=== PATIENT | male | born 1965 | race Caucasian/White ===

== ENCOUNTER 2020-07-26 20:41 | Inpatient (IN) ==
[2020-07-26] MEDS ORDERED: DEXAMETHASONE SOD INJ 4 MG/ML VIAL IV STA (21:00)
[2020-07-26] MEDS ORDERED: ALBUTEROL HFA 8 GM INHALER INH ONE (21:00)
[2020-07-26] MEDS ORDERED: ACETAMINOPHEN 1,000 MG/100 ML VIAL IV STA (21:01)
[2020-07-26 21:27] LABS: Basophils # (auto) 0.02 K/uL (0-0.2); Basophils % (auto) 0.3 %; Eosinophils # (auto) 0.22 K/uL (0-0.5); Eosinophils % (auto) 2.9 %; Hematocrit (blood only) 38.5 % (42-52); Hemoglobin 13.1 g/dL (14.0-18.0); Immature Granulocytes # (auto) 0.03 K/uL (0.00-0.02); Immature Granulocytes % (auto) 0.4 %; Lymphocytes % (auto) 30.5 %; Mean Corpuscular Hemoglobin 26.6 pg (25-34); Mean Corpuscular Volume 78.3 fL (80-100); Mean Platelet Volume 9.4 fL (7.4-10.4); Monocytes # (auto) 0.58 K/uL (0.11-0.59); Monocytes % (auto) 7.7 %; Neutrophils # (auto) 4.38 K/uL (1.4-6.5); Neutrophils % (auto) 58.2 %; Platelet Count 296 K/uL (130-400); RDW Coefficient of Variation 14.9 % (11.5-14.5); RDW Standard Deviation 42.6 fL (36.4-46.3); Red Blood Count 4.92 M/uL (4.7-6.1); White Blood Count 7.53 K/uL (4.8-10.8)
--- NOTE | 2020-07-26 21:28 | Emergency Department Note ---
History of Present Illness General Chief complaint: Shortness of Breath/Dyspnea Stated complaint: SOB Time Seen by Provider: 07/26/20 20:52 Source: patient, RN notes reviewed and old records reviewed Mode of arrival: ambulatory Limitations: no limitations History of Present Illness Provider complaint: Shortness of breath Onset (ago): day(s) 3 Location: chest Radiation: back Severity: moderate Pain Consistency: + intermittent Maximum Pain Intensity: 5 Current Pain Intensity: 5 Quality: + aching Relieved By: + immobilization and + rest Exacerbated By: + movement (breathing ) Associated symptoms: + loss of appetite, + nausea/vomiting and + shortness of breath Treatments prior to arrival: none This is a 55-year-old male who presents emergency department complaining of shortness of breath that is made worse with exertion. The patient has been checking his pulse ox at home and noted he has been dropping into the 80s for the past 2 days with movement. The patient reports rest makes the shortness of breath better however exertion makes it worse. He has not taken anything for this prior to arrival. 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 Home Medications Medication Instructions Recorded Confirmed Type amlodipine 5 mg PO QPM 08/19/18 07/26/20 History omeprazole 20 mg PO QPM 08/19/18 07/26/20 History sertraline 100 mg PO QPM 08/19/18 07/26/20 History warfarin 7.5 - 10 mg PO QPM 08/19/18 07/26/20 History loratadine [Allergy Relief 10 mg PO PM 07/26/20 07/26/20 History (loratadine)] Allergies Allergy/AdvReac Type Severity Reaction Status Date / Time No Known Allergies Allergy Verified 07/26/20 21:25 Past Med/Surg History Medical History (Updated 07/26/20 @ 23:25 by Pablo Sinha MD) Shortness of breath Family History Other Clotting disorder Social History Smoking Status: Former smoker Feels Safe at Home: Yes Review of Systems A total of 10 systems reviewed and were otherwise negative Physical Exam Vital Signs Vital Signs - 24 hr 07/26/20 20:42 07/26/20 20:45 07/26/20 21:05 Temperature 36.3 C L Temperature Source Temporal Artery Scan Pulse Rate 90 90 Pulse Rate from SpO2 Sensor 89 Respiratory Rate 28 H 20 Respiratory Effort / Characteristics Spontaneous Labored Spontaneous Labored Respiratory Depth Normal Respiratory Pattern Regular Blood Pressure 153/80 H 150/72 H Blood Pressure Mean 104 85 Pulse Oximetry 97 95 97 Oxygen Delivery Method Room Air Room Air Room Air Sepsis Recent Fever Within 48 Hours No Sepsis New/Unexplained Change in Mental Status No Sepsis Action Taken by Nursing No Action Required 07/26/20 21:30 Temperature Temperature Source Pulse Rate 85 Pulse Rate from SpO2 Sensor 84 Respiratory Rate 19 Respiratory Effort / Characteristics Respiratory Depth Respiratory Pattern Blood Pressure 143/73 H Blood Pressure Mean 95 Pulse Oximetry 94 Oxygen Delivery Method Room Air Other Sepsis Recent Fever Within 48 Hours Sepsis New/Unexplained Change in Mental Status Sepsis Action Taken by Nursing VITAL SIGNS - Vital signs and nursing notes were reviewed. GENERAL - 55-year-old male appearing stated age who is in no acute distress. Communicates well with provider and answers questions appropriately. SKIN - Without rashes. HEAD - NC/AT. EYES - PERRL with EOMI bilaterally. Sclera anicteric. Palpebral conjunctiva pink and moist with no injection noted. EARS - No deformities of external structures noted on gross examination bilaterally. No pain elicited with palpation of the tragus bilaterally. External auditory canals without discharge or otorrhea. Tympanic membranes pearly rose without retraction or bulging. No fluid or purulent material visualized behind the TM. Handle of malleus, umbo, cone of light, pars tensa/flaccid all easily visualized. NOSE - Midline and without cyanosis. No epistaxis or purulent drainage noted. Septum midline without deviation or septal hematoma noted. MOUTH/OROPHARYNX - Without perioral cyanosis. Buccal mucosa pink and moist and without leukoplakia. Tongue midline with equal elevation of palate bilaterally. No tonsillar hypertrophy, erythema, or exudates noted. dentition noted. NECK - Neck with FROM. Supple to palpation. lymphadenopathy noted. No nuchal rigidity. LUNGS - Chest wall symmetric without accessory muscle use, intercostals retractions, or central cyanosis. Normal vesicular breath sounds CTA B/L. No wheezes, rales, or rhonchi appreciated. CARDIAC - RRR with S1/S2. No murmur, rubs, or gallops appreciated. ABDOMEN - Abdominal contour without pulsations or visible masses. BS normoactive all four quadrants. No tenderness, palpable masses, hepa tosplenomegaly, or ascites noted. EXTREMITIES - No clubbing or peripheral cyanosis. No pretibial edema present. +3/5 radial, posterior tibial, and dorsalis pedis pulses palpated throughout. +5/5 strength noted in UE/LE bilaterally. NEUROLOGIC - Cranial nerves II through XII grossly intact. Sensory intact to light touch throughout. Patellar reflexes +2/4. PSYCH - A&Ox3 and cooperates fully with examiner. Pt is very pleasant and interacts well with examiner. Course Administered Medications Discontinued Medications Albuterol (Albuterol Hfa 8 Gm Inhaler) 2 puffs INH NOW ONE Stop: 07/26/20 21:01 Last Admin: 07/26/20 21:15 Dose: 2 puffs Documented by: [id number] Dexamethasone (Dexamethasone Sod Inj 4 Mg/Ml Vial) 6 mg IV NOW STA Stop: 07/26/20 21:01 Last Admin: 07/26/20 21:16 Dose: 6 mg Documented by: [id number] Acetaminophen (Ofirmev) 1,000 mg in 100 mls @ 400 mls/hr IV NOW STA Stop: 07/26/20 21:15 Last Infusion: 07/26/20 22:00 Dose: 0 mls/hr Documented by: [id number] Admin: 07/26/20 21:15 Dose: 400 mls/hr Documented by: [id number] Ioversol (Optiray 320 125ml) 125 ml IV ONCE ONE Stop: 07/26/20 22:49 Last Admin: 07/26/20 22:49 Dose: 112 ml Documented by: [id number] Medical Decision Making Differential Diagnosis Reactive airway disease, pneumonia, pneumothorax, COPD, CHF, infections, cardiac ischemia, pulmonary embolism, musculoskeletal, gastrointestinal, as well as other pathologies. Medical Records Attestation: I reviewed the patient's medical records. Home Medications Current Medication List: was personally reviewed by me Laboratory Data Attestation: I reviewed the patient's lab results. Result diagrams: 07/26/20 21:14 07/26/20 21:14 Lab Results 07/26/20 07/26/20 07/26/20 Range/Units 21:14 21:14 21:14 WBC 7.53 (4.8-10.8) K/uL RBC 4.92 (4.7-6.1) M/uL Hgb 13.1 L (14.0-18.0) g/dL Hct 38.5 L (42-52) % MCV 78.3 L (80-100) fL MCH 26.6 (25-34) pg MCHC 34.0 (32-36) g/dL RDW Std Deviation 42.6 (36.4-46.3) fL RDW Coeff of Wilner 14.9 H (11.5-14.5) % Plt Count 296 (130-400) K/uL MPV 9.4 (7.4-10.4) fL Immature Gran % (Auto) 0.4 % Neut % (Auto) 58.2 % Lymph % (Auto) 30.5 % [place] % (Auto) 7.7 % Eos % (Auto) 2.9 % Baso % (Auto) 0.3 % Neut # (Auto) 4.38 (1.4-6.5) K/uL Lymph # (Auto) 2.30 (1.2-3.4) K/uL [place] # (Auto) 0.58 (0.11-0.59) K/uL Eos # (Auto) 0.22 (0-0.5) K/uL Baso # (Auto) 0.02 (0-0.2) K/uL Immature Gran # (Auto) 0.03 H (0.00-0.02) K/uL ESR (0-14) mm/hr PT 24.1 H (9.0-12.0) Seconds INR 2.4 H (0.9-1.1) APTT 42.7 H (21.0-31.0) Seconds PTT Ratio 1.5 D-Dimer 500 (0-500) ug/L FEU Sodium 141 (136-145) mmol/L Potassium 3.5 (3.5-5.1) mmol/L Chloride 108 H (98-107) mmol/L Carbon Dioxide 26 (21-32) mmol/L Anion Gap 7.0 (3-11) BUN 20 H (7-18) mg/dl Creatinine 1.16 (0.6-1.4) mg/dl Est Cr Clr Drug Dosing 91.2 ml/min Est GFR ( Amer) 81.1 Est GFR (Non-Af Amer) 70.0 BUN/Creatinine Ratio 17.0 (10-20) Glucose 94 (70-99) mg/dl Calcium 8.3 L (8.5-10.1) mg/dl Ferritin 154.9 (8-388) ng/ml Total Bilirubin 0.5 (0.2-1) mg/dl AST 17 (15-37) U/L ALT 25 (12-78) U/L Alkaline Phosphatase 132 H (45-117) U/L Lactate Dehydrogenase (87-241) U/L Total Creatine Kinase 227 (39-308) U/L CK-MB (CK-2) 2.2 (0.5-3.6) ng/ml CK/CKMB % Calc 1.0 (0-3.0) Troponin I 0.018 (0-0.045) ng/ml C-Reactive Protein 1.55 H (0-0.29) mg/dl Total Protein 6.8 (6.4-8.2) gm/dl Albumin 3.2 L (3.4-5.0) gm/dl Globulin 3.6 (2.5-4.0) gm/dl Albumin/Globulin Ratio 0.9 (0.9-2) Lipase 112 (73-393) U/L COVID-19 Eval Order SARS-CoV-2, RNA, NAAT (NEGATIVE) 07/26/20 07/26/20 07/26/20 Range/Units 21:14 21:14 21:14 WBC (4.8-10.8) K/uL RBC (4.7-6.1) M/uL Hgb (14.0-18.0) g/dL Hct (42-52) % MCV (80-100) fL MCH (25-34) pg MCHC (32-36) g/dL RDW Std Deviation (36.4-46.3) fL RDW Coeff of Wilner (11.5-14.5) % Plt Count (130-400) K/uL MPV (7.4-10.4) fL Immature Gran % (Auto) % Neut % (Auto) % Lymph % (Auto) % [place] % (Auto) % Eos % (Auto) % Baso % (Auto) % Neut # (Auto) (1.4-6.5) K/uL Lymph # (Auto) (1.2-3.4) K/uL [place] # (Auto) (0.11-0.59) K/uL Eos # (Auto) (0-0.5) K/uL Baso # (Auto) (0-0.2) K/uL Immature Gran # (Auto) (0.00-0.02) K/uL ESR 7 (0-14) mm/hr PT (9.0-12.0) Seconds INR (0.9-1.1) APTT (21.0-31.0) Seconds PTT Ratio D-Dimer (0-500) ug/L FEU Sodium (136-145) mmol/L Potassium (3.5-5.1) mmol/L Chloride (98-107) mmol/L Carbon Dioxide (21-32) mmol/L Anion Gap (3-11) BUN (7-18) mg/dl Creatinine (0.6-1.4) mg/dl Est Cr Clr Drug Dosing ml/min Est GFR ( Amer) Est GFR (Non-Af Amer) BUN/Creatinine Ratio (10-20) Glucose (70-99) mg/dl Calcium (8.5-10.1) mg/dl Ferritin (8-388) ng/ml Total Bilirubin (0.2-1) mg/dl AST (15-37) U/L ALT (12-78) U/L Alkaline Phosphatase (45-117) U/L Lactate Dehydrogenase (87-241) U/L Total Creatine Kinase (39-308) U/L CK-MB (CK-2) (0.5-3.6) ng/ml CK/CKMB % Calc (0-3.0) Troponin I (0-0.045) ng/ml C-Reactive Protein (0-0.29) mg/dl Total Protein (6.4-8.2) gm/dl Albumin (3.4-5.0) gm/dl Globulin (2.5-4.0) gm/dl Albumin/Globulin Ratio (0.9-2) Lipase (73-393) U/L COVID-19 [email or web address] SARS-[facility]-2, RNA, NAAT NEGATIVE (NEGATIVE) 07/26/20 Range/Units 21:14 WBC (4.8-10.8) K/uL RBC (4.7-6.1) M/uL Hgb (14.0-18.0) g/dL Hct (42-52) % MCV (80-100) fL MCH (25-34) pg MCHC (32-36) g/dL RDW Std Deviation (36.4-46.3) fL RDW Coeff of Wilner (11.5-14.5) % Plt Count (130-400) K/uL MPV (7.4-10.4) fL Immature Gran % (Auto) % Neut % (Auto) % Lymph % (Auto) % [place] % (Auto) % Eos % (Auto) % Baso % (Auto) % Neut # (Auto) (1.4-6.5) K/uL Lymph # (Auto) (1.2-3.4) K/uL [place] # (Auto) (0.11-0.59) K/uL Eos # (Auto) (0-0.5) K/uL Baso # (Auto) (0-0.2) K/uL Immature Gran # (Auto) (0.00-0.02) K/uL ESR (0-14) mm/hr PT (9.0-12.0) Seconds INR (0.9-1.1) APTT (21.0-31.0) Seconds PTT Ratio D-Dimer (0-500) ug/L FEU Sodium (136-145) mmol/L Potassium (3.5-5.1) mmol/L Chloride (98-107) mmol/L Carbon Dioxide (21-32) mmol/L Anion Gap (3-11) BUN (7-18) mg/dl Creatinine (0.6-1.4) mg/dl Est Cr Clr Drug Dosing ml/min Est GFR ( Amer) Est GFR (Non-Af Amer) BUN/Creatinine Ratio (10-20) Glucose (70-99) mg/dl Calcium (8.5-10.1) mg/dl Ferritin (8-388) ng/ml Total Bilirubin (0.2-1) mg/dl AST (15-37) U/L ALT (12-78) U/L Alkaline Phosphatase (45-117) U/L Lactate Dehydrogenase 249 H (87-241) U/L Total Creatine Kinase (39-308) U/L CK-MB (CK-2) (0.5-3.6) ng/ml CK/CKMB % Calc (0-3.0) Troponin I (0-0.045) ng/ml C-Reactive Protein (0-0.29) mg/dl Total Protein (6.4-8.2) gm/dl Albumin (3.4-5.0) gm/dl Globulin (2.5-4.0) gm/dl Albumin/Globulin Ratio (0.9-2) Lipase (73-393) U/L COVID-19 Eval Order SARS-CoV-2, RNA, NAAT (NEGATIVE) Imaging Data Attestation: I personally reviewed and interpreted this imaging study as follows: My Impression: 1 view of the chest was interpreted by me shows multiple areas of pneumonia. ECG Data Attestation: I personally reviewed and interpreted this ECG as follows: Indication: + SOB/dyspnea Rate (beats per minute): 89 Rhythm: + normal sinus ECG Intervals/blocks: + Normal QT-c (479) ECG [place]: + Normal ECG ST segments: no ST depression and no ST elevation Comparison ECG Date: from (11/08/2008) Change: no significant change MDM Narrative Patient was seen and evaluated as above in room A9. Review was performed of nursing notes and vital signs. I did review pertinent previous visits and patient history. After obtaining a thorough history and physical examination the above work up was performed. This is a 55-year-old male who presents emergency department complaining of shortness of breath that has been ongoing for the past 2 days. The patient is on Coumadin. The patient had extreme shortness of breath here in the emergency department and was placed on oxygen for sats in the 80s. He was started on Decadron here. His kramer test is negative. His INR is 2.5. He has multifocal pneumonia on his chest x-ray. He was sent for CAT scan of the chest. Because the patient is requiring oxygen I did discuss the case with the hospitalist service who did agree to meet the patient. The patient was started on broad- spectrum antibiotics. An order was placed for continuous cardiac monitoring. The monitor shows a rate of 90 with Normal SInus rhythm. The patient was evaluated during a period of high volume and high acuity while the hospital was at overcapacity during the global COVID-19 pandemic, and that diagnosis was suspected/considered upon their initial presentation. Their evaluation, treatment and testing was consistent with current guidelines for patients who present with complaints or symptoms that may be related to COVID- 19. Impression & Plan Hypoxia, Pneumonia Discharge Plan Visit Data Chief Complaint: Shortness of Breath/Dyspnea Stated Complaint: SOB ED Provider: Pablo Sinha Discharge Problem: Hypoxia, Pneumonia Forms Stand Alone Forms: [facility] [place] [employer] Prescriptions Prescriptions: No Action sertraline 100 mg tablet 100 mg PO QPM RF: 0 amlodipine 5 mg tablet 5 mg PO QPM RF: 0 warfarin 5 mg tablet 7.5 - 10 mg PO QPM RF: 0 omeprazole 20 mg Tablet,Delayed Release (Dr/Ec) 20 mg PO QPM RF: 0 loratadine [Allergy Relief (loratadine)] 10 mg Tablet 10 mg PO PM RF: 0 Discharge Problem: Pneumonia Qualifiers: Pneumonia type: due to unspecified organism Laterality: unspecified laterality Lung location: unspecified part of lung Qualified Code(s): J18.9 - Pneumonia, unspecified organism
[2020-07-26 21:39] LABS: D Dimer 500 ug/L FEU (0-500); INR 2.4 (0.9-1.1); Partial Thromboplastin Ratio 1.5; Partial Thromboplastin Time 42.7 Seconds (21.0-31.0); Prothrombin Time 24.1 Seconds (9.0-12.0)
[2020-07-26 21:48] LABS: Albumin Level 3.2 gm/dl (3.4-5.0); Calcium 8.3 mg/dl (8.5-10.1); Creatinine Clr Calc Pharmacy 91.2 ml/min; Est GFR (African American) 81.1; Potassium 3.5 mmol/L (3.5-5.1)
[2020-07-26 21:53] LABS: Albumin Globulin Ratio 0.9 (0.9-2); Bilirubin,Total 0.5 mg/dl (0.2-1); Creatine Kinase MB 2.2 ng/ml (0.5-3.6); Globulin 3.6 gm/dl (2.5-4.0); Total Protein 6.8 gm/dl (6.4-8.2); Troponin I 0.018 ng/ml (0-0.045)
[2020-07-26 22:40] LABS: C Reactive Protein 1.55 mg/dl (0-0.29)
[2020-07-26 22:41] LABS: Ferritin 154.9 ng/ml (8-388)
[2020-07-26] MEDS ORDERED: OPTIRAY 320 125ml IV ONE (22:48)
[2020-07-26] MEDS ORDERED: PIPERACILL/TAZOBAC CONSULT ACTIVE PRN (23:14)
[2020-07-26] MEDS ORDERED: levoFLOXacin/D5W 750 MG/150 ML BAG IV STA (23:14)
[2020-07-26] MEDS ORDERED: VANCOMYCIN HCL 1,000 MG/270 ML BAG IV STA (23:14)
[2020-07-26] MEDS ORDERED: VANCOMYCIN CONSULT ACTIVE PRN (23:14)
[2020-07-26] MEDS ORDERED: PIPERACILLIN/TAZOBACTAM 4.5 GM/120 ML BAG IV ONE (23:14)
--- NOTE | 2020-07-26 23:30 | History & Physical Report ---
Date of Service July 26, 2020 Assessment & Plan (1) Shortness of breath: 55yo C male with two days of ORTEGA. Patient mildly hypoxic to 88% on room air in the ER. He has dry cough otherwise no specific complaints. 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 His Covid-19 rapid antigen test performed in the ER was NEGATIVE. CT of the chest with small OSMAR infiltrate with possible cavitation vs small pneumothorax. Elevated CRP and LDH which are nonspecific. -Admit to medical -Check procalcitonin and BNP -Will order more sensitive Covid testing as patient's occupation places him at fairly high risk for exposure. Biofire panel ordered. -Blood cultures x 2 sets -Sputum culture -Ceftriaxone 1gm IV daily for presumed CAP -Azithromycin 500mg IV daily for presumed CAP -Will order 2D echo as patient with 3/6 HANDY at RSB Present on Admission?: Yes (2) Clotting disorder: Patient with strong family and personal history of clotting. ?Prothrombin gene mutation as mentioned in records. He is on lifelong anticoagulation with Coumadin. Therapeutic INR of 2.4 today -Continue Coumadin -Monitor INR daily Present on Admission?: Yes (3) Hypertension: Blood pressure well controlled -Continue Amlodipine 5mg po daily Present on Admission?: Yes (4) GERD (gastroesophageal reflux disease): Chronic. Stable -Continue Omeprazole Present on Admission?: Yes (5) Anemia: Patient with microcytic anemia. Hgb=13.1, Hct=38.5, MCV=78.3. This is decreased from prior values of 14.5 and 43.4 with normal MCV on 08/19/18. Ashleigh melgar denies melena/hematochezia/hematuria or easy bleeding/bruising. He had a colonoscopy performed appx 6 years ago. Ferritin level is within normal range, however, can be misleading as it is an acute phase reactant. -Check iron level with AM lab -FOBT x 1 -Recommend continued outpatient monitoring Present on Admission?: Yes (6) WESELY on CPAP: Chronic. Patient reports he is compliant with CPAP -Continue CPAP qHS F/E/N- Heplock. Electrolytes WNL, check Mg and PO4 x 1 and replete as needed, heart healthy diet as tolerated Ppx - On Coumadin for history of PEs with clotting disorder. Continue home Omeprazole Code - Full per discussion with patient Dispo - Admit to medical History of Present Illness Chief Complaint: SOB Primary Care Provider: Javier Cordero Renny Perez is a 55yo C male with prior history of PE, clotting disorder (prothrombin gene mutation) on Coumadin anticoagulation with therapeutic INR of 2.4. Patient works as a local EMT. He presents with two days of dyspnea on exertion. He reports becoming short of breath with ambulating even short distances. He has an occasional dry cough. Denies fevers/chills/sweats/sputum/chest pain/palpitations/orthopnea/weight gain or edema. Patient has been monitoring his oxygen saturations at home and they have occasionally dipped into the 80's. Upon arrival to the ER he was found to be afebrile, HD stable, NAD. Adequate oxygenation at 94% on room air. He did become mildly hypoxic in the ER - witnessed to be 88-89% on room air with proper waveform. He was placed on supplemental oxygen by NC 2L with improvement in oxygenation. ER Course: Dexamethasone 6mg IV, Tylenol, 1gm, Albuterol 2 puffs, Levaquin 750mg, Zosyn 4.5gm, Vancomycin 1gm Allergies Allergy/AdvReac Type Severity Reaction Status Date / Time No Known Allergies Allergy Verified 07/26/20 21:25 Home Medications Medication Instructions Recorded Confirmed Type amlodipine 5 mg PO QPM 08/19/18 07/26/20 History omeprazole 20 mg PO QPM 08/19/18 07/26/20 History sertraline 100 mg PO QPM 08/19/18 07/26/20 History warfarin 7.5 - 10 mg PO QPM 08/19/18 07/26/20 History loratadine [Allergy Relief 10 mg PO PM 07/26/20 07/26/20 History (loratadine)] Past Med/Surg History Medical History (Updated 07/26/20 @ 23:55 by Monique Browning DO) Clotting disorder GERD (gastroesophageal reflux disease) Hypertension WESLEY on CPAP Surgical History (Updated 07/26/20 @ 23:26 by Monique Browning DO) No significant past surgical history Family History Other Clotting disorder Social History (Updated 07/26/20 @ 23:26 by Monique Browning DO) Smoking Status: Former smoker Do You Dip or Chew Tobacco: Yes; Hx Alcohol Use: No Hx Substance Use: No Feels Safe at Home: Yes Review of Systems Review of Systems: All systems reviewed & are unremarkable except as noted in HPI & below Physical Exam Physical Exam: General: patient resting comfortably, NAD, non-toxic in appearance, AA&O x 4, facemask in place Skin: warm, dry, intact, no rashes or lesions HEENT: NC/AT, PERRL, EOMI, anicteric sclera, conjunctiva without injection, external ear normal to inspection and nontender, nares patent, moist mucus membranes, dentition intact, no oropharyngeal lesions, neck supple, trachea midline, no LAD, no thyromegaly, no JVD Heart: +S1/S2, regular, 3/6 HANDY at right sternal border Lungs: equal air entry bilaterally, no rales or wheezes, +crackles in bilateral bases Abd: +BS, soft, NT/ND, no masses/organomegaly/ascites Ext: warm, 2+ pulses in UE/LE bilaterally, no clubbing/cyanosis, trace pitting edema bilaterally Neuro: nonfocal, patient AA&O x 4, speech intact, no facial droop, moving all extremities on command with equal strength 5/5 Results & Data Results & Data ([facility]) Vital Signs (Past 12 Hours) Vital Signs Temp Pulse Resp BP Pulse Ox 07/26/20 21:30 85 19 143/73 H 94 07/26/20 21:05 90 20 150/72 H 97 07/26/20 20:45 36.3 C L 90 28 H 153/80 H 95 07/26/20 20:42 97 Laboratory Results Lab Results 07/26/20 07/26/20 07/26/20 Range/Units 21:14 21:14 21:14 WBC 7.53 (4.8-10.8) K/uL RBC 4.92 (4.7-6.1) M/uL Hgb 13.1 L (14.0-18.0) g/dL Hct 38.5 L (42-52) % MCV 78.3 L (80-100) fL MCH 26.6 (25-34) pg MCHC 34.0 (32-36) g/dL RDW Std Deviation 42.6 (36.4-46.3) fL RDW Coeff of Wilner 14.9 H (11.5-14.5) % Plt Count 296 (130-400) K/uL MPV 9.4 (7.4-10.4) fL Immature Gran % (Auto) 0.4 % Neut % (Auto) 58.2 % Lymph % (Auto) 30.5 % Bond % (Auto) 7.7 % Eos % (Auto) 2.9 % Baso % (Auto) 0.3 % Neut # (Auto) 4.38 (1.4-6.5) K/uL Lymph # (Auto) 2.30 (1.2-3.4) K/uL Bond # (Auto) 0.58 (0.11-0.59) K/uL Eos # (Auto) 0.22 (0-0.5) K/uL Baso # (Auto) 0.02 (0-0.2) K/uL Immature Gran # (Auto) 0.03 H (0.00-0.02) K/uL ESR (0-14) mm/hr PT 24.1 H (9.0-12.0) Seconds INR 2.4 H (0.9-1.1) APTT 42.7 H (21.0-31.0) Seconds PTT Ratio 1.5 D-Dimer 500 (0-500) ug/L FEU Sodium 141 (136-145) mmol/L Potassium 3.5 (3.5-5.1) mmol/L Chloride 108 H (98-107) mmol/L Carbon Dioxide 26 (21-32) mmol/L Anion Gap 7.0 (3-11) BUN 20 H (7-18) mg/dl Creatinine 1.16 (0.6-1.4) mg/dl Est Cr Clr Drug Dosing 91.2 ml/min Est GFR ( Amer) 81.1 Est GFR (Non-Af Amer) 70.0 BUN/Creatinine Ratio 17.0 (10-20) Glucose 94 (70-99) mg/dl Calcium 8.3 L (8.5-10.1) mg/dl Ferritin 154.9 (8-388) ng/ml Total Bilirubin 0.5 (0.2-1) mg/dl AST 17 (15-37) U/L ALT 25 (12-78) U/L Alkaline Phosphatase 132 H (45-117) U/L Lactate Dehydrogenase (87-241) U/L Total Creatine Kinase 227 (39-308) U/L CK-MB (CK-2) 2.2 (0.5-3.6) ng/ml CK/CKMB % Calc 1.0 (0-3.0) Troponin I 0.018 (0-0.045) ng/ml C-Reactive Protein 1.55 H (0-0.29) mg/dl Total Protein 6.8 (6.4-8.2) gm/dl Albumin 3.2 L (3.4-5.0) gm/dl Globulin 3.6 (2.5-4.0) gm/dl Albumin/Globulin Ratio 0.9 (0.9-2) Lipase 112 (73-393) U/L COVID-19 Eval Order SARS-CoV-2, RNA, NAAT (NEGATIVE) 07/26/20 07/26/20 07/26/20 Range/Units 21:14 21:14 21:14 WBC (4.8-10.8) K/uL RBC (4.7-6.1) M/uL Hgb (14.0-18.0) g/dL Hct (42-52) % MCV (80-100) fL MCH (25-34) pg MCHC (32-36) g/dL RDW Std Deviation (36.4-46.3) fL RDW Coeff of Wilner (11.5-14.5) % Plt Count (130-400) K/uL MPV (7.4-10.4) fL Immature Gran % (Auto) % Neut % (Auto) % Lymph % (Auto) % Bond % (Auto) % Eos % (Auto) % Baso % (Auto) % Neut # (Auto) (1.4-6.5) K/uL Lymph # (Auto) (1.2-3.4) K/uL Bond # (Auto) (0.11-0.59) K/uL Eos # (Auto) (0-0.5) K/uL Baso # (Auto) (0-0.2) K/uL Immature Gran # (Auto) (0.00-0.02) K/uL ESR 7 (0-14) mm/hr PT (9.0-12.0) Seconds INR (0.9-1.1) APTT (21.0-31.0) Seconds PTT Ratio D-Dimer (0-500) ug/L FEU Sodium (136-145) mmol/L Potassium (3.5-5.1) mmol/L Chloride (98-107) mmol/L Carbon Dioxide (21-32) mmol/L Anion Gap (3-11) BUN (7-18) mg/dl Creatinine (0.6-1.4) mg/dl Est Cr Clr Drug Dosing ml/min Est GFR ( Amer) Est GFR (Non-Af Amer) BUN/Creatinine Ratio (10-20) Glucose (70-99) mg/dl Calcium (8.5-10.1) mg/dl Ferritin (8-388) ng/ml Total Bilirubin (0.2-1) mg/dl AST (15-37) U/L ALT (12-78) U/L Alkaline Phosphatase (45-117) U/L Lactate Dehydrogenase (87-241) U/L Total Creatine Kinase (39-308) U/L CK-MB (CK-2) (0.5-3.6) ng/ml CK/CKMB % Calc (0-3.0) Troponin I (0-0.045) ng/ml C-Reactive Protein (0-0.29) mg/dl Total Protein (6.4-8.2) gm/dl Albumin (3.4-5.0) gm/dl Globulin (2.5-4.0) gm/dl Albumin/Globulin Ratio (0.9-2) Lipase (73-393) U/L COVID-19 Eval Order Covid19 IDNow at[facility] SARS-CoV-2, RNA, NAAT NEGATIVE (NEGATIVE) 07/26/20 Range/Units 21:14 WBC (4.8-10.8) K/uL RBC (4.7-6.1) M/uL Hgb (14.0-18.0) g/dL Hct (42-52) % MCV (80-100) fL MCH (25-34) pg MCHC (32-36) g/dL RDW Std Deviation (36.4-46.3) fL RDW Coeff of Wilner (11.5-14.5) % Plt Count (130-400) K/uL MPV (7.4-10.4) fL Immature Gran % (Auto) % Neut % (Auto) % Lymph % (Auto) % Bond % (Auto) % Eos % (Auto) % Baso % (Auto) % Neut # (Auto) (1.4-6.5) K/uL Lymph # (Auto) (1.2-3.4) K/uL Bond # (Auto) (0.11-0.59) K/uL Eos # (Auto) (0-0.5) K/uL Baso # (Auto) (0-0.2) K/uL Immature Gran # (Auto) (0.00-0.02) K/uL ESR (0-14) mm/hr PT (9.0-12.0) Seconds INR (0.9-1.1) APTT (21.0-31.0) Seconds PTT Ratio D-Dimer (0-500) ug/L FEU Sodium (136-145) mmol/L Potassium (3.5-5.1) mmol/L Chloride (98-107) mmol/L Carbon Dioxide (21-32) mmol/L Anion Gap (3-11) BUN (7-18) mg/dl Creatinine (0.6-1.4) mg/dl Est Cr Clr Drug Dosing ml/min Est GFR ( Amer) Est GFR (Non-Af Amer) BUN/Creatinine Ratio (10-20) Glucose (70-99) mg/dl Calcium (8.5-10.1) mg/dl Ferritin (8-388) ng/ml Total Bilirubin (0.2-1) mg/dl AST (15-37) U/L ALT (12-78) U/L Alkaline Phosphatase (45-117) U/L Lactate Dehydrogenase 249 H (87-241) U/L Total Creatine Kinase (39-308) U/L CK-MB (CK-2) (0.5-3.6) ng/ml CK/CKMB % Calc (0-3.0) Troponin I (0-0.045) ng/ml C-Reactive Protein (0-0.29) mg/dl Total Protein (6.4-8.2) gm/dl Albumin (3.4-5.0) gm/dl Globulin (2.5-4.0) gm/dl Albumin/Globulin Ratio (0.9-2) Lipase (73-393) U/L COVID-19 Eval Order SARS-CoV-2, RNA, NAAT (NEGATIVE) Diagnostic Findings CTA Chest - Per STAT rad: Small region of consolidation in the inferior aspect of the left upper lobe. Adjacent to this consolidation, there is a small air cavity. This air cavity may reporesent a region of cavitation versus a tiny superimposed pneumothorax. Small right greater than left pleural effusions with adjacent passive atelectasis. No evidence of an acute pulmonary embolism. Mildly enlarged AP window the distal lymph nodes, likely reactive in etiology. Multiple benign simple cysts in the liver. ECG Additional Comments: EKG wtih NSR at 89, normal axis, JM=818, QRS=88, IEk=596, no acute ischemic changes PG Care Time/CCT Total # of Minutes Spent Total Time Spent with Patient: Total time spent is greater than 50% in coordination of care (as documented) at patient's floor/unit and/or counseling patient: Coding Level of Care Code 46248 Initial Inpt Care Lvl 3 Diagnoses Shortness of breath R06.02 Clotting disorder D68.9 Hypertension I10 Hypertension type: essential hypertension GERD (gastroesophageal reflux disease) K21.9 Esophagitis presence: esophagitis presence not specified Anemia D64.9 Anemia type: unspecified type WESLEY on CPAP G47.33; Z99.89 (1) GERD (gastroesophageal reflux disease) Esophagitis presence: esophagitis presence not specified Qualified Code(s): K21.9 - Gastro-esophageal reflux disease without esophagitis (2) Hypertension Hypertension type: essential hypertension Qualified Code(s): I10 - Essential (primary) hypertension (3) Anemia Anemia type: unspecified type Qualified Code(s): D64.9 - Anemia, unspecified
[2020-07-26 23:32] LABS: Magnesium 2.3 mg/dl (1.8-2.4)
[2020-07-27 00:39] LABS: Adenovirus PCR Not Detected (NotDetected); Bordetella parapertussis PCR Not Detected (NotDetected); Bordetella pertussis PCR Not Detected (NotDetected); Chlamydia pneumoniae PCR Not Detected (NotDetected); Coronavirus 229E PCR Not Detected (NotDetected); Coronavirus CoV-2 (COVID19)PCR Not Detected (NotDetected); Coronavirus HKU1 PCR Not Detected (NotDetected); Coronavirus NL63 PCR Not Detected (NotDetected); Coronavirus OC43PCR Not Detected (NotDetected); Human Metapneumovirus PCR Not Detected (NotDetected); Influenza A PCR Not Detected (NotDetected); Influenza B PCR Not Detected (NotDetected); Mycoplasma pneumoniae PCR Not Detected (NotDetected); Parainfluenza Virus 1 PCR Not Detected (NotDetected); Parainfluenza Virus 2 PCR Not Detected (NotDetected); Parainfluenza Virus 3 PCR Not Detected (NotDetected); Parainfluenza Virus 4 PCR Not Detected (NotDetected); Respiratory Syncytial VirusPCR Not Detected (NotDetected); Rhinovirus/Enterovirus PCR Not Detected (NotDetected)
[2020-07-27] MEDS ORDERED: ACETAMINOPHEN 325 MG TAB PO PRN (03:43)
[2020-07-27] MEDS ORDERED: INFLUENZA VIRUS QUAD VACCINE 0.5 ML SYR IM ONE (04:56)
[2020-07-27] MEDS ORDERED: INFLUENZA ADMINISTRATION CHARGE ONE (04:56)
[2020-07-27] MEDS: cefTRIAXone SODIUM 2,000 MG in DEXTROSE 5% 50 ML IV SCH (05:26)
[2020-07-27 06:26] LABS: Basophils # (auto) 0.01 K/uL (0-0.2); Basophils % (auto) 0.2 %; Hematocrit (blood only) 40.2 % (42-52); Hemoglobin 13.3 g/dL (14.0-18.0); Immature Granulocytes # (auto) 0.02 K/uL (0.00-0.02); Immature Granulocytes % (auto) 0.4 %; Lymphocytes # (auto) 0.91 K/uL (1.2-3.4); Lymphocytes % (auto) 18.5 %; Mean Corpuscular Hemoglobin 25.8 pg (25-34); Mean Corpuscular Hgb Conc 33.1 g/dL (32-36); Mean Corpuscular Volume 78.1 fL (80-100); Mean Platelet Volume 9.3 fL (7.4-10.4); Monocytes # (auto) 0.04 K/uL (0.11-0.59); Monocytes % (auto) 0.8 %; Neutrophils # (auto) 3.94 K/uL (1.4-6.5); Neutrophils % (auto) 80.1 %; Platelet Count 296 K/uL (130-400); RDW Coefficient of Variation 14.7 % (11.5-14.5); RDW Standard Deviation 41.8 fL (36.4-46.3); Red Blood Count 5.15 M/uL (4.7-6.1); White Blood Count 4.92 K/uL (4.8-10.8)
[2020-07-27 06:47] LABS: INR 2.3 (0.9-1.1); Prothrombin Time 23.5 Seconds (9.0-12.0)
[2020-07-27 06:58] LABS: Albumin Level 3.1 gm/dl (3.4-5.0); BUN Creatinine Ratio 16.7 (10-20); Bilirubin,Total 0.6 mg/dl (0.2-1); Calcium 8.1 mg/dl (8.5-10.1); Creatinine Clr Calc Pharmacy 103.7 ml/min; Est GFR (African American) 94.8; Est GFR (Non-African American) 81.8; Potassium 4.1 mmol/L (3.5-5.1); Total Protein 6.9 gm/dl (6.4-8.2)
[2020-07-27 07:00] LABS: Bilirubin Direct 0.1 mg/dl (0-0.2); Troponin I 0.018 ng/ml (0-0.045)
--- NOTE | 2020-07-27 07:49 | CT Scan Report ---
CT ANGIOGRAM OF THE CHEST CLINICAL HISTORY: Atypical chest pain. Dyspnea. COMPARISON STUDY: Chest x-ray dated 07/26/2020. Chest CT dated 11/08/2008. TECHNIQUE: Following the IV administration of 112 cc of Optiray 320, CT angiogram of the chest was pe rformed from the upper abdomen to the thoracic inlet utilizing the pulmonary embolus protocol. Images are reviewed in the axial, sagittal, and coronal planes. 3-D MIPS images are created and assessed. I V contrast was administered without complication. A dose lowering technique was utilized adhering to the principles of ALARA. CT DOSE: 836.88 mGy.cm FINDINGS: Thyroid: Imaged portions of the thyroid gland are normal in size and attenuation. Thoracic aorta: The thoracic aorta is normal in caliber and demonstrates standard 3-vessel arch anato my. No dissection is seen. Pulmonary vasculature: The pulmonary trunk is normal in caliber. There are no filling defects identif ied in main, lobar, or segmental pulmonary branches to suggest pulmonary embolus. Heart: The heart is top normal in size and without pericardial effusion. Lungs and pleural spaces: Emphysematous change is noted. There are small pleural effusions with assoc iated atelectasis. There is mild diffuse intralobular septal thickening. The trachea and central airw ays are clear. Diffuse peribronchial thickening is noted. More focal consolidation is seen in the olivia gula and left lower lobe on image #79. A 2 cm focus of cystic change or cavitation is seen on image # 67. Mediastinum: There is mediastinal lymphadenopathy. A pretracheal node on image #194 measures 1.5 cm i n short axis. Prevascular nodes measure up to 1.4 cm in short axis. A subcarinal node measures 1.6 cm in short axis. Jessie: There are enlarged hilar nodes. A right hilar node on image #157 measures 2.7 x 1.8 cm. Axillae: There is no axillary lymphadenopathy. Upper abdomen: There is a small hiatal hernia. Small hepatic cysts measure up to 12 mm. Skeletal structures: No lytic or blastic bony lesions are seen. IMPRESSION: 1. There is no evidence of pulmonary embolus in the main, lobar, or segmental pulmonary arteries. 2. Emphysema. 3. There is diffuse intralobular septal thickening comment peribronchial thickening, and small pleura l effusions. These findings suggest congestive failure. Clinical correlation will be required. 4. More focal airspace consolidation is seen in the lingula and left lower lobe. Additionally, there is a small focus of cystic change or cavitation at this site. This could represent scarring/fibrosis or possibly an infectious pneumonitis. Clinical correlation will be essential. 5. Mediastinal lymphadenopathy may be reactive. ACT 112: Negative or not required by law. Electronically signed by: Mirza Reid M.D. 07/27/2020 7:47 AM
--- NOTE | 2020-07-27 08:16 | XRay Report ---
XR chest 1V portable HISTORY: Atypical Chest Pain COMPARISON: Chest 07/02/2018. FINDINGS: No pneumothorax. The heart is enlarged. There is diffuse interstitial/vascular thickening w ith trace bilateral pleural effusions. Left basilar scarlike densities persist. IMPRESSION: Cardiomegaly with diffuse interstitial/vascular thickening suggestive of mild pulmonary edema. ACT 112: Negative or not required by law. Electronically signed by: Meir Key M.D. 07/27/2020 8:15 AM
--- NOTE | 2020-07-27 09:53 | Electrocardiogram Report ---
Test Reason : Blood Pressure : / mmHG Vent. Rate : 089 BPM Atrial Rate : 089 BPM P-R Int : 130 ms QRS Dur : 088 ms QT Int : 394 ms P-R-T Axes : 050 042 032 degrees QTc Int : 479 ms Normal sinus rhythm Normal ECG When compared with ECG of 08-NOV-2008 15:22, Vent. rate has increased BY 30 BPM Confirmed by Henri Tristan ([id number]) on 07/27/2020 9:53:16 AM Referred By: REFERRED SELF Confirmed By:Henri Tristan
--- NOTE | 2020-07-27 10:04 | Hospitalist Progress Note ---
Date of Service July 27, 2020 Assessment & Plan Admission and Anticipated Discharge Date Admission Date: July 26, 2020 Results & Data Results & Data ([facility]) Vital Signs (Past 12 Hours) Vital Signs Temp Pulse Pulse Resp BP BP Pulse Ox 07/27/20 07:38 36.5 C 82 18 115/60 95 07/27/20 05:13 36.7 C 76 16 129/69 97 07/27/20 01:30 79 23 147/63 H 96 07/27/20 01:00 79 18 154/80 H 97 07/27/20 00:30 79 20 153/75 H 96 07/27/20 00:00 77 157/74 H 95 07/26/20 23:44 37 C 07/26/20 23:30 83 19 139/78 95 07/26/20 23:27 80 23 140/71 96 07/26/20 22:30 78 22 143/76 H 96
[2020-07-27] MEDS: AZITHROMYCIN 500 MG in DEXTROSE 5% 250 ML IV SCH (10:17)
[2020-07-27] MEDS ORDERED: WARFARIN SOD 7.5 MG TAB PO SCH (16:00)
--- NOTE | 2020-07-27 18:25 | Hospitalist Progress Note ---
Date of Service July 27, 2020 Assessment & Plan (1) Shortness of breath: infiltrate with possible cavitation vs small pneumothorax. Elevated CRP and LDH which are nonspecific. -pulmonary input appreciated -continue zithromax/rocephin -continue supportive care -since still on PUI type precautions, check covid antigen (2) Clotting disorder: continue coumadin, follow INR (3) Hypertension: BP adequate for situation, continue current meds and follow (4) GERD (gastroesophageal reflux disease): continue PPI (5) Anemia: Patient with microcytic anemia. Hgb=13.1, Hct=38.5, MCV=78.3. This is decreased from prior values of 14.5 and 43.4 with normal MCV on 08/19/18. Patient denies melena/hematochezia/hematuria or easy bleeding/bruising. He had a colonoscopy performed appx 6 years ago. Ferritin level is within normal range, however, can be misleading as it is an acute phase reactant. -iron sl low, ferritin ok but possibly false given picture of acute infection -outpt w/u and follow up (6) WESLEY on CPAP: Chronic. Patient reports he is compliant with CPAP -Continue CPAP qHS Ppx - On Coumadin for history of PEs with clotting disorder. Continue home Omeprazole Code - Full per discussion with patient w admitting hospitalist Dispo - stable on medical Admission and Anticipated Discharge Date Admission Date: July 26, 2020 Subjective feeling better breathing better less sob. notes he was in the high 80's after helping unload the car yesterday but now ~90-91% on RA. still on covid pui precautions. pulmonary has seen - input appreciated pt hoping to go home soon and have much of w/u as outpt Review of Systems Review of Systems: All systems reviewed & are unremarkable except as noted in HPI & below Physical Exam Physical Exam: vitals noted nad heent nc at mmm breathing unlabored no accessory muscles good effort skin no rashes no pallor or icterus Results & Data Results & Data ([facility]) Vital Signs (Past 12 Hours) Vital Signs Temp Pulse Resp BP Pulse Ox 07/27/20 16:09 98.1 F 94 H 18 138/71 94 07/27/20 07:38 97.7 F 82 18 115/60 95 PG Care Time/CCT Total # of Minutes Spent Total Time Spent with Patient: Total time spent is greater than 50% in coordination of care (as documented) at patient's floor/unit and/or counseling patient: Coding Level of Care Code 84318 Subseq Hosp Care Lvl 3 Diagnoses Shortness of breath R06.02 Clotting disorder D68.9 Hypertension I10 Hypertension type: essential hypertension GERD (gastroesophageal reflux disease) K21.9 Esophagitis presence: esophagitis presence not specified Anemia D64.9 Anemia type: unspecified type WESLEY on CPAP G47.33; Z99.89 (1) Hypertension Hypertension type: essential hypertension Qualified Code(s): I10 - Essential (primary) hypertension (2) GERD (gastroesophageal reflux disease) Esophagitis presence: esophagitis presence not specified Qualified Code(s): K21.9 - Gastro-esophageal reflux disease without esophagitis (3) Anemia Anemia type: unspecified type Qualified Code(s): D64.9 - Anemia, unspecified
--- NOTE | 2020-07-27 18:31 | Pulmonary Consultation ---
Date of Consultation July 27, 2020 Assessment & Plan (1) Acute respiratory failure with hypoxia: CT chest 07/26/2020 personally reviewed: Diffuse peripheral opacities which are irregular, groundglass opacities also appreciated right next to the dense consolidative process. Right-sided pleural effusion. Centrilobular emphysema especially in the upper lobes. Interstitial thickening is appreciated. Mediastinal lymphadenopathy appreciated at station 4R, 10 R, station 7 There is confluence of shadows in the left lower lobe. I personally do not think this is a cavitary lesion I did compare the CAT scan to one which he had done in October 2018. Patient did have some nonspecific changes which are somewhat similar to the one which he has right now but on the current CAT scan they seem to be more pronounced. --Acute hypoxic respiratory failure Patient has groundglass opacities along with some consolidative process COVID-19 negative 07/26/20 which was followed by [facility] which was also negative Influenza A and B negative Positive lymphopenia, which is new compared to previous labs Procalcitonin 0.05, CRP 1.55, NT BNP 277 Patient's CAT scan findings are not typical of COVID-19. Given that he already had some consolidative process appreciated on the CAT scan of 2018 --Mediastinal lymphadenopathy Could be reactive. I would continue with antibiotics for the time being. If there is no improvement in the infiltrates will think about doing an EBUS. Peripheral IV if there is improvement in patient's condition I would rather have a CT scan in 6 weeks which will be in the middle of August to see if there is any improvement in the mediastinal lymph nodes But if there is no improvement in patient's pulmonary status with think about doing the EBUS during this visit. Patient does have history of prothrombin mutation that he is on warfarin for it. It will need to be stopped prior to the procedure and INR should be less than 1.5 if we decide to go ahead with it. There is some interstitial thickening appreciated as well. I ordered autoimmune work-up. --Right-sided pleural effusion Small Monitor Patient did have pleural effusion when he was initially diagnosed with prothrombin gene mutation and as per the patient it was benign. --History of renal cell cancer S/p resection --Ex-smoker with emphysema Approximately 86-echm-ohav smoking history Quit smoking at the age of 40. We will start the patient on [facility] PFT[facility] Plan: Continue with antibiotics given that the procalcitonin is negative but given the dense consolidative process appreciated I do not think there is a cavitary lesion is most likely confluence of shadows. The probability of patient having COVID-19 is low given the patient was negative already twice to and it is not typical CT chest I would order 2D echo to make sure cardiac issue is not the reason of the right- sided pleural effusion as well as the interstitial thickening which is appreciated on the CAT scan We will give a dose of Lasix 20 mg Please note the above document was generated using voice recognition software. It may contain grammatical, syntax or spelling errors.Any formal questions or concerns about the content, text or information contained within the body of this dictation should be directly addressed to the provider for clarification. (2) Shortness of breath: (3) Abnormal chest CT: (4) WESLEY on CPAP: History of Present Illness Attending Physician: Quinton Boston DO History of Present Illness 55-year-old male with past medical history of PE, prothrombin gene mutation on Coumadin with therapeutic INR, is a local EMT as a volunteer. Does not go regularly to the field. He presented to the hospital with complaints of shortness of breath which has been going on since around New Year's progressively getting worse. He states that he has always had issues with exertional shortness of breath but it was worse since new year. He denies any fever, no chills, no ageusia, no anosmia. No diarrhea, no dysuria. No recent travel history. No known exposure to any COVID-19 patients. Patient denies any known history of any lung disease personally or in the famil y. There is no history of sarcoidosis, no rheumatoid arthritis, no lupus, no Sjogren's that he knows of. Patient denies any Raynaud's phenomena In the ED patient was mildly hypoxic to 89%. And he was put on supplemental oxygen. At the time of examination the patient was saturating 91% on room air. Social history: Greater than 66-qgpt-siar smoking history quit at the age of 40. Allergies Allergy/AdvReac Type Severity Reaction Status Date / Time No Known Allergies Allergy Verified 07/26/20 21:25 Home Medications Medication Instructions Recorded Confirmed Type amlodipine 5 mg PO QPM 08/19/18 07/26/20 History omeprazole 20 mg PO QPM 08/19/18 07/26/20 History sertraline 100 mg PO QPM 08/19/18 07/26/20 History warfarin 7.5 - 10 mg PO QPM 08/19/18 07/26/20 History loratadine [Allergy Relief 10 mg PO PM 07/26/20 07/26/20 History (loratadine)] Patient History Medical History (Updated 07/27/20 @ 18:15 by Khadar Pond MD) Clotting disorder GERD (gastroesophageal reflux disease) Hypertension WESLEY on CPAP Surgical History (Updated 07/26/20 @ 23:26 by Monique Browning DO) No significant past surgical history Family History Other Clotting disorder Social History (Updated 07/26/20 @ 23:26 by Monique Browning DO) Smoking Status: Former smoker Second Hand Exposure: No; Hx Alcohol Use: No Hx Substance Use: No Preferred Language: Italian Communication Ability: Unable Grease And Tallow Pumper Required: No Beliefs That Will Affect Care: None Current Living Situation: Spouse Current Living Situation Comment: with Feels Safe at Home: Yes Assistive Devices: Oxygen - Continuous Review of Systems Review of Systems: All systems reviewed & are unremarkable except as noted in HPI & below Physical Exam Physical Exam: Constitutional: No acute distress HEENT: EOMI, PERRLA Respiratory system: Decreased air entry bilaterally, no wheeze, no rhonchi, mild crackles bilateral lower lobes CVS: S1-S2 positive, no murmurs or gallops, distant heart sounds Abdomen: Soft, nontender, nondistended, positive bowel sounds x4 Extremities: +2 pulses bilaterally radialis/ dorsalis pedis, no cyanosis, +1 edema bilateral lower extremity Neuro: Awake alert oriented x3 Psych: Normal mood and affect G/U: No Kay Skin: no rashes, warm and dry Lymphatic: no cervical or axillary lymphadenopathy Results & Data Results & Data ([facility]) Vital Signs (Past 12 Hours) Vital Signs Temp Pulse Resp BP Pulse Ox 07/27/20 16:09 36.7 C 94 H 18 138/71 94 07/27/20 07:38 36.5 C 82 18 115/60 95 07/27/20 06:00 07/27/20 06:00 PG Care Time/CCT Total # of Minutes Spent Total Time Spent with Patient: Total time spent is greater than 50% in coordination of care (as documented) at patient's floor/unit and/or counseling patient: Coding Level of Care Code 49937 Inpt Consult Level 5 Diagnoses Acute respiratory failure with hypoxia J96.01 Shortness of breath R06.[address] R93.89 WESLEY on CPAP G47.33; Z99.89 Time Spent (min) 113
[2020-07-27] MEDS ORDERED: FUROSEMIDE 20 MG in SYRINGE 0 ML IV ONE (19:00)
[2020-07-27] MEDS ORDERED: amLODIPine BESYLATE 5 MG TAB PO SCH (21:00)
[2020-07-27] MEDS ORDERED: SERTRALINE HCL 100 MG TABLET PO SCH (21:00)
[2020-07-27] MEDS ORDERED: LORATADINE 10 MG TAB PO SCH (21:00)
[2020-07-27] MEDS ORDERED: PANTOprazole 40 MG TAB PO SCH (21:00)
[2020-07-28] MEDS: cefTRIAXone SODIUM 2,000 MG in DEXTROSE 5% 50 ML IV SCH (04:51)
[2020-07-28 07:50] LABS: Basophils # (auto) 0.01 K/uL (0-0.2); Basophils % (auto) 0.1 %; Eosinophils # (auto) 0.08 K/uL (0-0.5); Eosinophils % (auto) 0.9 %; Hemoglobin 13.4 g/dL (14.0-18.0); Immature Granulocytes # (auto) 0.03 K/uL (0.00-0.02); Immature Granulocytes % (auto) 0.3 %; Lymphocytes # (auto) 2.16 K/uL (1.2-3.4); Lymphocytes % (auto) 24.3 %; Mean Corpuscular Hemoglobin 26.1 pg (25-34); Mean Corpuscular Hgb Conc 32.7 g/dL (32-36); Mean Corpuscular Volume 79.8 fL (80-100); Mean Platelet Volume 9.6 fL (7.4-10.4); Monocytes # (auto) 0.68 K/uL (0.11-0.59); Monocytes % (auto) 7.6 %; Neutrophils # (auto) 5.93 K/uL (1.4-6.5); Neutrophils % (auto) 66.8 %; Platelet Count 304 K/uL (130-400); RDW Standard Deviation 43.6 fL (36.4-46.3); Red Blood Count 5.14 M/uL (4.7-6.1); White Blood Count 8.89 K/uL (4.8-10.8)
[2020-07-28 08:25] LABS: INR 1.8 (0.9-1.1); Prothrombin Time 18.2 Seconds (9.0-12.0)
[2020-07-28 08:28] LABS: BUN Creatinine Ratio 20.2 (10-20); Calcium 8.3 mg/dl (8.5-10.1); Creatinine Clr Calc Pharmacy 84.6 ml/min; Est GFR (African American) 74.1; Potassium 3.7 mmol/L (3.5-5.1)
[2020-07-28 08:43] VITALS: BP 104/57; PULSE 76; TEMP 97.9; O2SAT 94
[2020-07-28] MEDS ORDERED: UMECLIDINIUM BROMIDE 62.5MCG/BLISTER 7 PUFFS/INHALER INH SCH (09:00)
[2020-07-28] MEDS: AZITHROMYCIN 500 MG in DEXTROSE 5% 250 ML IV SCH (09:48)
[2020-07-28] MEDS ORDERED: FUROSEMIDE 20 MG TAB PO ONE (10:30)
--- NOTE | 2020-07-28 11:39 | XCELERA ---
[id number]
--- NOTE | 2020-07-28 12:26 | Pulmonology Progress Note ---
Date of Service July 28, 2020 Assessment & Plan (1) Acute respiratory failure with hypoxia: CT chest 07/26/2020 personally reviewed: Diffuse peripheral opacities which are irregular, groundglass opacities also appreciated right next to the dense consolidative process. Right-sided pleural effusion. Centrilobular emphysema especially in the upper lobes. Interstitial thickening is appreciated. Mediastinal lymphadenopathy appreciated at station 4R, 10 R, station 7 There is confluence of shadows in the left lower lobe. I personally do not think this is a cavitary lesion I did compare the CAT scan to one which he had done in October 2018. Patient did have some nonspecific changes which are somewhat similar to the one which he has right now but on the current CAT scan they seem to be more pronounced. --Acute hypoxic respiratory failure Patient has groundglass opacities along with some consolidative process COVID-19 negative 07/26/20 which was followed by [facility] which was also negative Influenza A and B negative Positive lymphopenia, which is new compared to previous labs Procalcitonin 0.05, CRP 1.55, NT BNP 277 Patient's CAT scan findings are not typical of COVID-19. Given that he already had some consolidative process appreciated on the CAT scan of 2008 --Mediastinal lymphadenopathy Could be reactive. I would continue with antibiotics for the time being. If there is no improvement in the infiltrates will think about doing an EBUS. If there is improvement in patient's condition I would rather have a CT scan in 6 weeks which will be in the middle of August to see if there is any impr ovement in the mediastinal lymph nodes But if there is no improvement in patient's pulmonary status with think about doing the EBUS during this visit. Patient does have history of prothrombin mutation that he is on warfarin for it. It will need to be stopped prior to the procedure and INR should be less than 1.5 if we decide to go ahead with it. There is some interstitial thickening appreciated as well. I ordered autoimmune work-up. --Right-sided pleural effusion Small Monitor Patient did have pleural effusion when he was initially diagnosed with prothrombin gene mutation and as per the patient it was benign. --WESLEY Continue with CPAP in the hospital --History of renal cell cancer S/p resection --Ex-smoker with emphysema Approximately 24-lzsj-ntat smoking history Quit smoking at the age of 40. Continue with [facility] PFT[facility] Plan: 2D echo EF 65-70%, mild to moderate MR, prolapse of the posterior mitral leaflet Follow-up autoimmune work-up. It will take a week or so to have that result back There is improvement in the patient's respiratory status after coming to the hospital Is saturating 95% on room air. Would recommend doing a two-step to make sure he does not desaturate on exertion. Continue with antibiotics for total of 10 days. Recommend repeating a CT chest in 6 weeks to see if there is any improvement in the mediastinal lymphadenopathy as well as the consolidative process Would continue with [facility] on discharge. Please note the above document was generated using voice recognition software. It may contain grammatical, syntax or spelling errors.Any formal questions or concerns about the content, text or information contained within the body of this dictation should be directly addressed to the provider for clarification. (2) Shortness of breath: (3) Abnormal chest CT: (4) WESLEY on CPAP: Admission and Anticipated Discharge Date Admission Date: July 26, 2020 Subjective Patient seen and examined at bedside. No acute distress, no adverse events overnight Patient was saturating 94% on room air at the time of examination. Says that he is feeling better. He diuresed well after the dose of Lasix yesterday Denies any cough. No chest pain, no dizziness, no headache, no nausea, no vomiting Good appetite. Review of Systems Review of Systems: All systems reviewed & are unremarkable except as noted in Subjective Physical Exam Physical Exam: Constitutional: No acute distress HEENT: EOMI, PERRLA Respiratory system: Decreased air entry bilaterally, no wheeze, no rhonchi, positive crackles bilateral lower lobes CVS: S1-S2 positive, no murmurs or gallops, distant heart sounds Abdomen: Soft, nontender, nondistended, positive bowel sounds x4 Extremities: +2 pulses bilaterally radialis/ dorsalis pedis, no cyanosis, +1 edema bilateral lower extremity Neuro: Awake alert oriented x3 Psych: Normal mood and affect G/U: No Kay Skin: no rashes, warm and dry Lymphatic: no cervical or axillary lymphadenopathy Results & Data Results & Data ([facility]) Vital Signs (Past 12 Hours) Vital Signs Temp Pulse Pulse Resp BP Pulse Ox 07/28/20 08:42 36.6 C 76 18 104/57 L 94 07/28/20 03:27 89 16 93 01/05/21 00:31 36.8 C 82 18 109/54 L 95 07/28/20 07:19 07/28/20 07:19 PG Care Time/CCT Total # of Minutes Spent Total Time Spent with Patient: Total time spent is greater than 50% in coordination of care (as documented) at patient's floor/unit and/or counseling patient: Coding Level of Care Code 03010 Subseq Hosp Care Lvl 3 Diagnoses Acute respiratory failure with hypoxia J96.01 Shortness of breath R06.[address] R93.89 WESLEY on CPAP G47.33; Z99.89
--- NOTE | 2020-07-28 19:08 | Discharge Summary ---
Date of Service July 28, 2020 Admission HPI Per Admitting Provider Renny Perez is a 55yo C male with prior history of PE, clotting disorder (prothrombin gene mutation) on Coumadin anticoagulation with therapeutic INR of 2.4. Patient works as a local EMT. He presents with two days of dyspnea on exertion. He reports becoming short of breath with ambulating even short distances. He has an occasional dry cough. Denies fevers/chills/sweats/sputum/chest pain/palpitations/orthopnea/weight gain or edema. Patient has been monitoring his oxygen saturations at home and they have occasionally dipped into the 80's. Upon arrival to the ER he was found to be afebrile, HD stable, NAD. Adequate oxygenation at 94% on room air. He did become mildly hypoxic in the ER - witnessed to be 88-89% on room air with proper waveform. He was placed on supplemental oxygen by NC 2L with improvement in oxygenation. ER Course: Dexamethasone 6mg IV, Tylenol, 1gm, Albuterol 2 puffs, Levaquin 750mg, Zosyn 4.5gm, Vancomycin 1gm Principal Diagnosis pneumonia Discharge Exam gen aaox3 pleasant nad heent nc at mmm breathing unlabored no accessory muscles good effort no focal neuro deficits. Discharge Data Allergies Allergy/AdvReac Type Severity Reaction Status Date / Time No Known Allergies Allergy Verified 07/26/20 21:25 Consultations 07/26/20 22:28 ED Decision to Admit Stat 07/27/20 13:38 Consult Pulmonology Routine Ordered Studies 07/26/20 22:22 CT angio chest PE protocol Urgent Hospital Course (1) Shortness of breath: appears to be pneumonia - -pulmonary input appreciated -finish abx - was on zithromax/rocephin - will complete course w zithromax/cefdinir -stable for home echo incidentally showed mitral regurg (2) Clotting disorder: continue coumadin, follow INR later this week (discussed INR sl low) (3) Hypertension: BP adequate for situation, continue current meds and follow (4) GERD (gastroesophageal reflux disease): continue PPI (5) Anemia: Patient with microcytic anemia. iron studies nonspecific. outpt f/u and w/u further (6) WESLEY on CPAP: Chronic. Patient reports he is compliant with CPAP -Continue CPAP qHS stable for home, see Total Time Total Time Spent Total Time Spent (In Minutes): >30 Discharge Plan Discharge Items Patient Disposition: Home - Self-Care Reason For Visit: HYPOXIA Discharge Diagnosis: pneumonia Activity: Resume your previous activity Non-emergency contact: Primary Care Provider and Insurance Sales Professional Call non-emergency contact if: you have any medication questions, your symptoms worsen, your pain is not controlled and you have a fever Follow-up/Referrals: Javier Cordero [Primary Care Provider] - 08/05/20 11:10 am Diet: Regular Addtl Attending Provider Instructions: pneumonia -your CT scan did show a pneumonia - given that it questionably had a gas bubble in it - we enlisted the help of pulmonary to ensure we did not see any odd or atypical infections at play. fortunately there's no overt evidence of this, and as we discussed, about 90% of the time i see situations like yours, they get better treating it as a regular pneumonia. -we'll finish out a course of antibiotics with azithromycin and cefdinir. the azithromycin will be 250mg tomorrow and , the cefdinir will be a dose in the morning and a dose in the evening for 8 more days (16 more doses) - next dose tonight -to ensure that there isn't anything odd going on - we'll then have you get a repeat CT scan of your chest in about 6 weeks and then have you follow up with Dr Pond (pulmonary) to review. the expectation is that if this is just a "regular" pneumonia, then the CT in 6 weeks should be clear; if it isn't then Dr Pond will be able to talk with you more about if anything like a bronchoscopy is warranted -as we discussed, simply recovering from a pneumonia is a longer process than most people expect it to be -- normally it can take a good 4-6 weeks until you really feel like yourself again. long after you're off the antibiotics, and long after your breathing has returned to normal, you might still just feel a degree of fatigue that is slow to go away. in that respect, look for progress that you can measure every 3-4 days - as day-to-day progress might not be enough to truly notice. of course if there is any worsening we'll want you to get checked out right away, but i always like to mention how normal it is to slowly get back to feeling like yourself to keep you "out of trouble!" iron -your iron studies and blood counts suggest that you might be iron deficient - but as we discussed, in the context of having a pneumonia, those studies can sometimes be inaccurate. the best way to follow through with this is to have Dr Cordero repeat iron studies once you're clear of the pneumonia (so if the CT scan in 6 weeks is clear, repeating iron studies the next week would be reasonable). He'll also double check to make sure you're up to date on having a colonoscopy. mitral valve -as an incidental finding on the echocardiogram, you had a little bit of a leaky mitral valve. this is unlikely to be causing you any symptoms or any problems at this time, but is something we'll want to keep an eye on. Typically we will follow with repeat echocardiograms - so Dr Cordero will order one in about 6 months or so to follow things, and then periodically thereafter based on if there is any change. INR -your INR was slight low today at 1.8. While being on antibiotics will often increase your INR, yours hasn't. To that end, take 10mg of coumadin today, and then have your INR repeated on or Monday. Pending Studies at Discharge: Yes Stand-Alone Forms: My [facility], Smoking Cessation Medications and DC Order Prescriptions: New azithromycin [Zithromax] 250 mg tablet 250 mg PO DAILY 3 Days Qty: 3 RF: 0 cefdinir 300 mg capsule 300 mg PO BID 8 Days Qty: 16 RF: 0 Continued sertraline 100 mg tablet 100 mg PO QPM RF: 0 amlodipine 5 mg tablet 5 mg PO QPM RF: 0 warfarin 5 mg tablet 7.5 - 10 mg PO QPM RF: 0 omeprazole 20 mg Tablet,Delayed Release (Dr/Ec) 20 mg PO QPM RF: 0 loratadine [Allergy Relief (loratadine)] 10 mg Tablet 10 mg PO PM RF: 0 Discharge Orders: Discharge Order (Routine); Ordered 07/28/20 Ordered By: Quinton Boston Admission Data Admit Date/Time: 07/26/20 23:08 Attending Provider: Quinton Boston Admit Provider: Monique Browning Primary Care Provider: Javier Cordero Other Providers: Monique Browning Muqueet Other Interventions: Discharge Summary Assessment (RN) Last Done: 07/28/20 12:53 Coding Level of Care Code D/C Day Management >30 mins Diagnoses Shortness of breath R06.02 Clotting disorder D68.9 Hypertension I10 Hypertension type: essential hypertension GERD (gastroesophageal reflux disease) K21.9 Esophagitis presence: esophagitis presence not specified Anemia D64.9 Anemia type: unspecified type WESLEY on CPAP G47.33; Z99.89
[2020-07-31] MEDS ORDERED: WARFARIN SOD 10 MG TAB PO SCH (16:00)
[2020-08-01 01:47] LABS: Anti Cardiolipin Ab IgG <14 GPL; Anti Cardiolipin Ab IgM 12 MPL; Anti Nuclear Antibody Screen NEGATIVE (NEGATIVE); Anti-Cardiolipin Ab IgA <11 APL; Anti-Centromere Ab <1.0 NEG AI (<1.0 NEG); Anti-SS-A <1.0 NEG AI (<1.0 NEG); Anti-SS-B <1.0 NEG AI (<1.0 NEG); Chromatin Antibody <1.0 NEG AI (<1.0 NEG); Complement C3 170 mg/dL (82-185); DNA ds Crithidia NEGATIVE (NEGATIVE); Microsomal Ab 1 IU/mL (<9); RNP Antibody <1.0 NEG AI (<1.0 NEG); Scleroderma Anti Scl-70 Ab <1.0 NEG AI (<1.0 NEG); Sm Antibody <1.0 NEG AI (<1.0 NEG)
== END 2020-07-28 14:15 | disposition home or self-care (01) | DRG 193 ==
LOC: ED 20:41 → SUATTDRO 23:08 → 2N 23:08 → 3W 07-28 03:39